=== PATIENT | male | born 1975 | race Caucasian/White ===

== ENCOUNTER → 2020-08-05 10:29 | Outpatient (BNVA) | payer OTHER, SELFPAY | PROVIDERS: Family Provider Urology; PCP Urology; Visit Provider Nurse Practitioner | DX: M79.671 Pain in right foot (principal); M72.2 Plantar fascial fibromatosis; M77.31 Calcaneal spur, right foot; Z68.21 Body mass index [BMI] 21.0-21.9, adult; F17.290 Nicotine dependence, other tobacco product, uncomplicated; Z71.89 Other specified counseling | CPT/HCPCS: 73630 ==

== ENCOUNTER 2022-06-19 04:56 | Observation (INO) | payer BC, SELFPAY ==
[2022-06-19] VITALS (12 sets, daily range): BP systolic 90–120; BP diastolic 54–71; PULSE 54–103; RESP 12–18; TEMP 36.2–37.1; O2SAT 95–100; BMI 20.7
--- NOTE | 2022-06-19 05:18 | CTR_ITS ---
PROCEDURE INFORMATION: Exam: CT Abdomen And Pelvis Without Contrast Exam date and time: 06/19/2022 5:35 AM Age: 46 years old Clinical indication: Nausea and vomiting; Abdominal pain; Patient HX: C/O left flank worse so in llq with n/v. ; Additional info: Left flank pain TECHNIQUE: Imaging protocol: Computed tomography of the abdomen and pelvis without contrast. Radiation optimization: All CT scans at this facility use at least one of these dose optimization techniques: automated exposure control; mA and/or kV adjustment per patient size (includes targeted exams where dose is matched to clinical indication); or iterative reconstruction. REPORTING DATA: Count of CT and Cardiac NM exams in prior 12 months: This patient has received 0 known CTs and 0 known cardiac nuclear medicine studies in the 12 months prior to the current study. COMPARISON: No relevant prior studies available. RADIATION DOSE METRICS: Total DLP (mGy-cm): 323.33 FINDINGS: Lungs: The visualized portions of the lung bases are normal. Liver: The non-contrast enhanced liver appears unremarkable. Gallbladder and bile ducts: No calcified stones. No biliary ductal dilatation. Pancreas: The non-contrast enhanced pancreas appears grossly unremarkable. No ductal dilation. Spleen: The non-contrast enhanced spleen appears unremarkable. No splenomegaly. Adrenal glands: Unremarkable non-contrast CT appearance of the adrenals. No definte masses. Kidneys and ureters: No contour deforming renal masses on the noncontrast CT. Left kidney mid zone 0.1 cm calculus. No right hydronephrosis, ureterectasis or ureteral calculi. Moderate left hydronephrosis and ureterectasis with a left distal ureteral 0.8 x 0.5 x 0.5 cm calculus (series 3, image 169 and series 5, image 73)-at the level of the hip joint. The Hounsfield units are 1363.9 HU. Stomach and bowel: The non-contrast opacified stomach is not well distended with relative gastric fold prominence. Assessment is limited. The noncontrast opacified small bowel loops appear unremarkable. The noncontrast opacified loops of colon show mild constipation. The lack of orally administered contrast material limits assessment. Appendix: No CT evidence of appendicitis. Intraperitoneal space: No abdominal ascites. No free air. Some benign phleboliths seen in the pelvis. Vasculature: No abdominal aortic aneurysm. Lymph nodes: No enlarged lymph nodes. Urinary bladder: No bladder debris. No wall thickening. Reproductive: The prostate demonstrates mild nonspecific enlargement. The seminal vesicles are normal. Recommend correlation with clinical exam findings and PSA level assessment. Bones/joints: No acute osseous abnormalities seen. Suspected osteopenia. Soft tissues: Unremarkable. CT/CT kidney stone [id number] IMPRESSION: 1. Moderate left hydronephrosis and ureterectasis with a left distal ureteral 0.8 x 0.5 x 0.5 cm calculus (series 3, image 169 and series 5, image 73)-at the level of the hip joint. 2. Other chronic findings, as noted above.
--- NOTE | 2022-06-19 05:18 | ED_ITS ---
Documented by User: Wesley Chong MD 06/19/22 05:20 HPI - Abdominal Pain General: Chief Complaint: Abdominal Pain Stated Complaint: Left Side Pain Time Seen by Provider: 06/19/22 05:02 Source: patient Mode of arrival: ambulatory Limitations: no limitations History of Present Illness: 46-year-old male states that he has had left flank pain since 11:00 he states he had sharp pain in that flank it radiates to his groin he has had 3 episodes of vomiting with the pain was severe he states at its worst a 10 out of 10 he states that seem to have improved is roughly a 6 out of 10 currently states he has no tenderness to touch is not worse with movement no history of kidney stone in the past. He denies any fevers denies any dysuria Associated Symptoms: Reports nausea and vomiting; Denies chills and fever(s) Review of Systems Const: Denies: fever(s), chills, body aches or change in appetite Eyes: Denies: blurry vision or eye discomfort ENMT: Denies: throat pain or dental pain Card: Denies: chest pain Resp: Denies: dyspnea GI: Reports: nausea and vomiting : Reports: flank pain Musc: Denies: neck pain or back pain Skin/Breast: Denies: rash Neuro: Denies: headache(s) Psych: Denies: depression Topher/Lymph: Denies: easy bruising All/Imm: Denies: urticaria PFS ED PFSH: Medical History (Updated 06/19/22 @ 05:48 by Wesley Chong MD) No pertinent past medical history Social History Smoking and tobacco status: current every day smoker (vape) e-cigarettes Physical Exam Const: COMMON NORMALS: no acute distress, patient oriented x3 and healthy appearing HENMT: COMMON NORMALS: normocephalic and atraumatic HEAD & SCALP: normocephalic and atraumatic Eye: COMMON NORMALS: Equal, round and reactive pupils present and EOMs intact bilaterally PUPIL: Yes Equal, round and reactive pupils present Neck/C-Spine: COMMON NORMALS: full ROM and supple Chest: COMMONS NORMALS: normal inspection of the chest and normal palpation of entire chest wall Resp: COMMON NORMALS: normal respiratory effort, No retractions, No use of accessory muscles and clear to auscultation bilaterally AUSCULTATION: clear to auscultation bilaterally Cardio: COMMON NORMALS: regular rate, regular rhythm and No murmurs present (Cardio) RATE: regular rate RHYTHM: regular rhythm GI: COMMON NORMALS: Normal to inspection, nondistended, normoactive bowel sounds present, Soft to palpation, non-tender and no masses PALPATION: Yes Soft to palpation Extremity: COMMON NORMALS: normal to inspection and full ROM Neuro: COMMON NORMALS: patient oriented x3, moves all extremities and no focal motor deficits Psych: COMMON NORMALS: mental status grossly normal, Normal thought process present and cooperative THOUGHT PROCESS: Normal thought process present Skin: COMMON NORMALS: no rashes or lesions noted and no wounds GENERAL SKIN EXAM: no rashes or lesions noted Course Vital Signs: Vital signs: Vital Signs Temperature 98.7 F 06/19/22 05:02 Pulse Rate 76 06/19/22 07:24 Respiratory Rate 16 06/19/22 07:24 Blood Pressure 102/68 06/19/22 07:24 Pulse Oximetry 97 06/19/22 07:24 Oxygen Delivery Me thod 06/19/22 06:27 MDM - Abdominal Pain Medical Decision Making Patient presents here with flank pain history consistent with a likely kidney stone he has no history of kidney stone we will obtain blood work urinalysis and a CT scan patient's care turned over to Dr. Alcaraz at this time Lab Data 06/19/22 05:30 06/19/22 05:30 Labs/Radiology: Radiology Impressions Abdomen/Pelvis CT 06/19/22 05:18 IMPRESSION: 1. Moderate left hydronephrosis and ureterectasis with a left distal ureteral 0.8 x 0.5 x 0.5 cm calculus (series 3, image 169 and series 5, image 73)-at the level of the hip joint. 2. Other chronic findings, as noted above. Laboratory Results WBC 11.3 10^3/uL (4.0-10.0) H 06/19/22 05:30 RBC 4.71 10^6/uL (4.1-5.3) 06/19/22 05:30 Hgb 14.2 g/dL (11.7-16.6) 06/19/22 05:30 Hct 42.2 % (42.0-52.0) 06/19/22 05:30 MCV 89.6 fl (80-94) 06/19/22 05:30 MCH 30.1 pg (28.0-34.0) 06/19/22 05:30 MCHC 33.6 g/dL (30.0-36.0) 06/19/22 05:30 RDW 13.3 % (12.1-15.1) 06/19/22 05:30 Plt Count 233 10^3/cmm (130-400) 06/19/22 05:30 MPV 9.7 fL (7.4-10.4) 06/19/22 05:30 Neut % (Auto) 83.3 % 06/19/22 05:30 Lymph % (Auto) 8.3 % 06/19/22 05:30 [place] % (Auto) 7.1 % 06/19/22 05:30 Eos % (Auto) 0.6 % 06/19/22 05:30 Baso % (Auto) 0.4 % 06/19/22 05:30 Neut # (Auto) 9.46 10^3/uL (1.8-7.7) H 06/19/22 05:30 Lymph # (Auto) 0.9 10^3/uL (0.8-4.8) 06/19/22 05:30 [place] # (Auto) 0.8 10^3/uL (0.2-0.9) 06/19/22 05:30 Eos # (Auto) 0.1 10^3/uL (0.0-0.8) 06/19/22 05:30 Baso # (Auto) 0.0 10^3/uL (0.0-0.1) 06/19/22 05:30 Nucleated RBC % (auto) 0 % 06/19/22 05:30 Nucleated RBCs # 0.0 /100WBC 06/19/22 05:30 Sodium 139 mmol/L (136-145) 06/19/22 05:30 Potassium 4.3 mmol/L (3.5-5.1) 06/19/22 05:30 Chloride 102 mmol/L (98-107) 06/19/22 05:30 Carbon Dioxide 28 mmol/L (22-29) 06/19/22 05:30 Anion Gap 13.3 (5-19) 06/19/22 05:30 BUN 16 mg/dL (6-20) 06/19/22 05:30 Creatinine 1.1 mg/dL (0.7-1.2) 06/19/22 05:30 GFR Calculation 71.4 mL/min (90-130) L 06/19/22 05:30 Glucose 112 mg/dL (65-115) 06/19/22 05:30 Calculated Osmolality 290 mOsm/kg (285-295) 06/19/22 05:30 Calcium 9.3 mg/dL (8.5-10.5) 06/19/22 05:30 Total Bilirubin 0.3 mg/dL (0.15-1.2) 06/19/22 05:30 AST 16 U/L (0-40) 06/19/22 05:30 ALT 16 U/L (0-41) 06/19/22 05:30 Alkaline Phosphatase 65 U/L (40-130) 06/19/22 05:30 Total Protein 6.6 g/dL (6.6-8.7) 06/19/22 05:30 Albumin 4.2 g/dL (3.5-5.2) 06/19/22 05:30 Globulin 2.4 g/dL (1.3-4.6) 06/19/22 05:30 Urine Color Yellow (Yellow) 06/19/22 06:25 Urine Appearance Clear (CLEAR) 06/19/22 06:25 Urine pH 9 (5-7) H 06/19/22 06:25 Ur Specific [place] 1.010 (1.005-1.030) 06/19/22 06:25 Urine Protein Neg (Negative) 06/19/22 06:25 Urine Glucose (UA) Norm (Normal) 06/19/22 06:25 Urine Ketones 1+ (Negative) H 06/19/22 06:25 Urine Blood 3+ (Negative) H 06/19/22 06:25 Urine Nitrate Negative (Negative) 06/19/22 06:25 Urine Bilirubin Neg (Negative) 06/19/22 06:25 Prot Sulfosalicylic Acd Negative (Negative) 06/19/22 06:25 Urine Urobilinogen Neg mg/dL (Negative) 06/19/22 06:25 Ur Leukocyte Esterase Negative (Negative) 06/19/22 06:25 Urine RBC 15-25 /hpf (0-2) H 06/19/22 06:25 Urine WBC None /hpf (0-5) 06/19/22 06:25 Ur Squamous Epith Cells None /hpf (0-5) 06/19/22 06:25 Amorphous Sediment Not Reportable 06/19/22 06:25 Urine Bacteria None /hpf (NONE) 06/19/22 06:25 Discharge Plan Discharge Patient Disposition: Placed in Observation Clinical Impression: Kidney stone on right side Condition: Stable Prescriptions: New hydrocodone-acetaminophen 5-325 mg tablet 1 tab PO Q6H PRN (Reason: pain) Qty: 14 0RF ondansetron 4 mg tablet,disintegrating 4 mg PO Q6H PRN (Reason: nausea and vomiting) Qty: 14 0RF No Action naproxen [Naprosyn] 500 mg tablet 500 mg PO BID 10 Days Qty: 20 0RF Referrals: Zeferino Kulkarni MD [Physician] - 1-3 days Patient Instructions: Kidney Stones (ED), Opioid Safety Sign Out Sign Out Data: Patient Sign Out occurred on 06/19/22 at 06:02. Patient's care was discussed, and care was transferred from to Kilo Alcaraz DO. Coding Level of Care Code ED Map Mounter for Chg Fwd Documented by User: Kilo Alcaraz DO 06/19/22 07:48 HPI - Abdominal Pain General: Chief Complaint: Abdominal Pain Stated Complaint: Left Side Pain Time Seen by Provider: 06/19/22 05:02 [facility] ED PFSH: Medical History (Updated 06/19/22 @ 05:48 by Wesley Chong MD) No pertinent past medical history Social History Smoking and tobacco status: current every day smoker (vape) e-cigarettes Course Vital Signs: Vital signs: Vital Signs Temperature 98.7 F 06/19/22 05:02 Pulse Rate 76 06/19/22 07:24 Respiratory Rate 16 06/19/22 07:24 Blood Pressure 102/68 06/19/22 07:24 Pulse Oximetry 97 06/19/22 07:24 Oxygen Delivery Me thod 06/19/22 06:27 MDM - Abdominal Pain Medical Decision Making Patient presents here with flank pain history consistent with a likely kidney stone he has no history of kidney stone we will obtain blood work urinalysis and a CT scan patient's care turned over to Dr. Alcaraz at this time Assumed care from Dr. Chong at change of shift. CT reviewed discussed with Dr. Kulkarni. He is planning to place on observation to do cystoscopy and retrieve stone. Patient's pain is well controlled at this time. Medical Records I reviewed the patient's medical records. Lab Data I reviewed the patient's lab results. 06/19/22 05:30 06/19/22 05:30 Labs/Radiology: Radiology Impressions Abdomen/Pelvis CT 06/19/22 05:18 IMPRESSION: 1. Moderate left hydronephrosis and ureterectasis with a left distal ureteral 0.8 x 0.5 x 0.5 cm calculus (series 3, image 169 and series 5, image 73)-at the level of the hip joint. 2. Other chronic findings, as noted above. Laboratory Results WBC 11.3 10^3/uL (4.0-10.0) H 06/19/22 05:30 RBC 4.71 10^6/uL (4.1-5.3) 06/19/22 05:30 Hgb 14.2 g/dL (11.7-16.6) 06/19/22 05:30 Hct 42.2 % (42.0-52.0) 06/19/22 05:30 MCV 89.6 fl (80-94) 06/19/22 05:30 MCH 30.1 pg (28.0-34.0) 06/19/22 05:30 MCHC 33.6 g/dL (30.0-36.0) 06/19/22 05:30 RDW 13.3 % (12.1-15.1) 06/19/22 05:30 Plt Count 233 10^3/cmm (130-400) 06/19/22 05:30 MPV 9.7 fL (7.4-10.4) 06/19/22 05:30 Neut % (Auto) 83.3 % 06/19/22 05:30 Lymph % (Auto) 8.3 % 06/19/22 05:30 [place] % (Auto) 7.1 % 06/19/22 05:30 Eos % (Auto) 0.6 % 06/19/22 05:30 Baso % (Auto) 0.4 % 06/19/22 05:30 Neut # (Auto) 9.46 10^3/uL (1.8-7.7) H 06/19/22 05:30 Lymph # (Auto) 0.9 10^3/uL (0.8-4.8) 06/19/22 05:30 [place] # (Auto) 0.8 10^3/uL (0.2-0.9) 06/19/22 05:30 Eos # (Auto) 0.1 10^3/uL (0.0-0.8) 06/19/22 05:30 Baso # (Auto) 0.0 10^3/uL (0.0-0.1) 06/19/22 05:30 Nucleated RBC % (auto) 0 % 06/19/22 05:30 Nucleated RBCs # 0.0 /100WBC 06/19/22 05:30 Sodium 139 mmol/L (136-145) 06/19/22 05:30 Potassium 4.3 mmol/L (3.5-5.1) 06/19/22 05:30 Chloride 102 mmol/L (98-107) 06/19/22 05:30 Carbon Dioxide 28 mmol/L (22-29) 06/19/22 05:30 Anion Gap 13.3 (5-19) 06/19/22 05:30 BUN 16 mg/dL (6-20) 06/19/22 05:30 Creatinine 1.1 mg/dL (0.7-1.2) 06/19/22 05:30 GFR Calculation 71.4 mL/min (90-130) L 06/19/22 05:30 Glucose 112 mg/dL (65-115) 06/19/22 05:30 Calculated Osmolality 290 mOsm/kg (285-295) 06/19/22 05:30 Calcium 9.3 mg/dL (8.5-10.5) 06/19/22 05:30 Total Bilirubin 0.3 mg/dL (0.15-1.2) 06/19/22 05:30 AST 16 U/L (0-40) 06/19/22 05:30 ALT 16 U/L (0-41) 06/19/22 05:30 Alkaline Phosphatase 65 U/L (40-130) 06/19/22 05:30 Total Protein 6.6 g/dL (6.6-8.7) 06/19/22 05:30 Albumin 4.2 g/dL (3.5-5.2) 06/19/22 05:30 Globulin 2.4 g/dL (1.3-4.6) 06/19/22 05:30 Urine Color Yellow (Yellow) 06/19/22 06:25 Urine Appearance Clear (CLEAR) 06/19/22 06:25 Urine pH 9 (5-7) H 06/19/22 06:25 Ur Specific [place] 1.010 (1.005-1.030) 06/19/22 06:25 Urine Protein Neg (Negative) 06/19/22 06:25 Urine Glucose (UA) Norm (Normal) 06/19/22 06:25 Urine Ketones 1+ (Negative) H 06/19/22 06:25 Urine Blood 3+ (Negative) H 06/19/22 06:25 Urine Nitrate Negative (Negative) 06/19/22 06:25 Urine Bilirubin Neg (Negative) 06/19/22 06:25 Prot Sulfosalicylic Acd Negative (Negative) 06/19/22 06:25 Urine Urobilinogen Neg mg/dL (Negative) 06/19/22 06:25 Ur Leukocyte Esterase Negative (Negative) 06/19/22 06:25 Urine RBC 15-25 /hpf (0-2) H 06/19/22 06:25 Urine WBC None /hpf (0-5) 06/19/22 06:25 Ur Squamous Epith Cells None /hpf (0-5) 06/19/22 06:25 Amorphous Sediment Not Reportable 06/19/22 06:25 Urine Bacteria None /hpf (NONE) 06/19/22 06:25 Discharge Plan Discharge Patient Disposition: Placed in Observation Clinical Impression: Kidney stone on right side Condition: Stable Prescriptions: New hydrocodone-acetaminophen 5-325 mg tablet 1 tab PO Q6H PRN (Reason: pain) Qty: 14 0RF ondansetron 4 mg tablet,disintegrating 4 mg PO Q6H PRN (Reason: nausea and vomiting) Qty: 14 0RF No Action naproxen [Naprosyn] 500 mg tablet 500 mg PO BID 10 Days Qty: 20 0RF Referrals: Zeferino Kulkarni MD [Physician] - 1-3 days Patient Instructions: Kidney Stones (ED), Opioid Safety Sign Out Sign Out Data: Patient Sign Out occurred on 06/19/22 at 06:02. Patient's care was discussed, and care was transferred from to Kilo Alcaraz DO. Coding Level of Care Code ED Map Mounter for Aram Moyer
[2022-06-19 05:47] LABS: Basophils % 0.4 %; Eosinophils # 0.1 10^3/uL (0.0-0.8); Eosinophils % 0.6 %; Hematocrit 42.2 % (42.0-52.0); Hemoglobin 14.2 g/dL (11.7-16.6); Lymphocytes # 0.9 10^3/uL (0.8-4.8); Lymphocytes % 8.3 %; Mean Corpuscular HGB Conc 33.6 g/dL (30.0-36.0); Mean Corpuscular Hemoglobin 30.1 pg (28.0-34.0); Mean Corpuscular Volume 89.6 fl (80-94); Mean Platelet Volume 9.7 fL (7.4-10.4); Monocytes # 0.8 10^3/uL (0.2-0.9); Monocytes % 7.1 %; Neutrophils # 9.46 10^3/uL (1.8-7.7); Neutrophils % 83.3 %; Nucleated Red Blood Cells % 0 %; Platelet Count 233 10^3/cmm (130-400); Red Blood Count 4.71 10^6/uL (4.1-5.3); Red Cell Distribution Width 13.3 % (12.1-15.1); White Blood Count 11.3 10^3/uL (4.0-10.0)
[2022-06-19] MEDS: ondansetron 2 mg/ML SDV 2 mL 4 MG IVP (05:47)
[2022-06-19] MEDS: sodium chloride 0.9% 1,000 ML 999 ML IV (05:47)
[2022-06-19] MEDS: HYDROmorphone 1 mg/mL INJ 1 mL 0.5 MG IVP (05:47)
[2022-06-19 06:10] LABS: Alanine Aminotransferase 16 U/L (0-41); Albumin Level 4.2 g/dL (3.5-5.2); Alkaline Phosphatase 65 U/L (40-130); Anion Gap 13.3 (5-19); Aspartate Amino Transferase 16 U/L (0-40); Blood Urea Nitrogen 16 mg/dL (6-20); Calcium 9.3 mg/dL (8.5-10.5); Carbon Dioxide 28 mmol/L (22-29); Chloride 102 mmol/L (98-107); Creatinine Clr Calc Pharmacy 78.7822; Globulin 2.4 g/dL (1.3-4.6); Glomerular Filtration Rate 71.4 mL/min (90-130); Glucose 112 mg/dL (65-115); Osmolality Calculated 290 mOsm/kg (285-295); Potassium 4.3 mmol/L (3.5-5.1); Sodium 139 mmol/L (136-145); Total Bilirubin 0.3 mg/dL (0.15-1.2); Total Protein 6.6 g/dL (6.6-8.7)
[2022-06-19 06:55] LABS: Add Urine Microscopic? YES; Bilirubin Urine Neg (Negative); Blood Urine 3+ (Negative); Glucose Urine UA Norm (Normal); Ketones Urine 1+ (Negative); Leukocyte Esterase Urine Negative (Negative); Nitrate Urine Negative (Negative); Protein Urine Neg (Negative); Sulfosalicylic Acid Urine Negative (Negative); Urine Appearance Clear (CLEAR); Urine Color Yellow (Yellow); Urobilinogen Urine Neg (Negative); pH Urine 9 (5-7)
[2022-06-19 06:56] LABS: Add Urine Culture? No; RBC Urine 15-25 /hpf (0-2)
--- NOTE | 2022-06-19 07:23 | PC.NURSE ---
DR. ROSE CURRENTLY IN ROOM SPEAKING WITH PT
--- NOTE | 2022-06-19 07:57 | PC.PHAR ---
pt states takes rx or otc medications
[2022-06-19] MEDS: sodium chloride 0.9% 1,000 ML 150 ML IV (08:15)
--- NOTE | 2022-06-19 09:46 | DCPLANNER ---
Addendum entered by Anisha Thornton 07/08/22 07:46: Patient had a follow up appointment scheduled with urology - patient did attend appointment Addendum entered by Anisha Thornton 06/23/22 14:32: Patient has a follow up appointment scheduled for Wednesday, June 29, 2022 at 2:[address] Kulkarni at urology. Clinic will call patient with appointment information. Original Note: finishing manager had message to schedule a follow up appointment for patient with urology. finishing manager sent patients information to the front office staff at urology. Patients information will be printed and reviewed. Clinic will call patient with appointment information.
[2022-06-19] MEDS: ketorolac 30 mg/mL INJ 15 MG IVP (10:50)
--- NOTE | 2022-06-19 13:06 | ANES.PREANE2 ---
Pre-Anesthetic Assessment Height/Weight: Height 1.75 m Weight 63.503 kg Temp Pulse Resp BP Pulse Ox O2 Del Method 98.7 F 54 L 16 90/59 95 06/19/22 05:02 06/19/22 08:39 06/19/22 08:39 06/19/22 08:39 06/19/22 08:39 06/19/22 10:21 Operation Date: 06/19/22 13:05 Proposed Procedures p Cystoscopy(Not Applicable) - Zeferino Kulkarni MD s Retrograde Pyelogram(Left) - Zeferino Kulkarni MD s Ureteroscopy(Left) - Zeferino Kulkarni MD s Laser Lithotripsy(Left) - Zeferino Kulkarni MD s Ureteral Stent Placement(Left) - Zeferino Kulkarni MD Familial anesthetic complications: None Was Beta Robby taken within 24 hours: N/A Was Clonidine taken within 24 hours: N/A Last intake: > 8hrs Social No alcohol and No tobacco Former smoker Exam alert, oriented x 3, clear to auscultation bilaterally and regular rate & rhythm Airway Mallampati: Class I Dentition: chipped Anesthetic Plan ASA status: 1 Anesthesia: General Risk of > 500 ml blood loss (7ml/kg in children): No Medications/Allergies Home Medications Medication Instructions Recorded Confirmed Last Taken Type No Known Home Medications 06/19/22 06/19/22 Unknown History Allergies Allergy/AdvReac Type Severity Reaction Status Date / Time No Known Allergies Allergy Verified 06/19/22 07:56 Current Medications Generic Name Dose Route Start Last Admin Trade Name Freq PRN Reason Stop Dose Admin Sodium Chloride 1,000 mls @ 150 mls/hr 06/19/22 07:45 06/19/22 08:15 Sodium Chloride 0.9% IV 150 mls/hr .Q6H40M DULCE Administration Ketorolac Tromethamine 15 mg 06/19/22 07:43 06/19/22 10:50 Ketorolac 30 Mg/Ml Inj IVP 06/24/22 07:42 15 mg Q6H PRN Administration MODERATE PAIN PFSH Anesthesia Medical History (Updated 06/19/22 @ 07:53 by Zeferino Kulkarni MD) Urolithiasis Surgical History (Updated 06/19/22 @ 07:53 by Zeferino Kulkarni MD) Status post routine circumcision Social History Smoking and tobacco status: current every day smoker (vape) e-cigarettes Data Anesthesia 06/19/22 05:30 06/19/22 05:30 Short CBC 06/19/22 Range/Units 05:30 WBC 11.3 H (4.0-10.0) 10^3/uL Hgb 14.2 (11.7-16.6) g/dL Hct 42.2 (42.0-52.0) % MCV 89.6 (80-94) fl Plt Count 233 (130-400) 10^3/cmm Neut % (Auto) 83.3 % Neut # (Auto) 9.46 H (1.8-7.7) 10^3/uL BMP 06/19/22 05:30 Sodium 139 Potassium 4.3 Chloride 102 Carbon Dioxide 28 BUN 16 Creatinine 1.1 Glucose 112 Calcium 9.3 Liver Function 06/19/22 Range/Units 05:30 Total Bilirubin 0.3 (0.15-1.2) mg/dL AST 16 (0-40) U/L ALT 16 (0-41) U/L Alkaline Phosphatase 65 (40-130) U/L Albumin 4.2 (3.5-5.2) g/dL Urine 06/19/22 Range/Units 06:25 Urine Color Yellow (Yellow) Urine Appearance Clear (CLEAR) Urine pH 9 H (5-7) Ur Specific [place] 1.010 (1.005-1.030) Urine Protein Neg (Negative) Urine Glucose (UA) Norm (Normal) Urine Ketones 1+ H (Negative) Urine Nitrate Negative (Negative) Urine Bilirubin Neg (Negative) Ur Leukocyte Esterase Negative (Negative) Urine RBC 15-25 H (0-2) /hpf Urine WBC None (0-5) /hpf Cardiac Studies: No Data to Display
[2022-06-19] MEDS: sodium chloride 0.9% 1,000 ML 30 ML IV (13:27)
[2022-06-19] MEDS: levofloxacin-dextrose 5 % 500 MG/100 ML PREMIX 100 MG IV (13:42)
--- NOTE | 2022-06-19 14:53 | PM.OP ---
Operative Report Date of procedure: June 19, 2022 Pre-op diagnosis: 1. Refractory left renal colic secondary to 8 mm left distal ureteral stone with obstruction. Post-op diagnosis: 1. Refractory left renal colic secondary to 8 mm left distal ureteral stone with obstruction. Procedure done: 1. Cystoscopy, LEFT retrograde 2. Left ureteroscopy, laser lithotripsy, stent Implants: Ureteral stent Specimens removed/disposition: Stone fragments Pathology: Stone fragments Surgeon: Cayla Estimated blood loss: Minimal Urine output: Not measured Complications: None Findings: Anesthesia: General Condition: Stable Disposition: PACU Intraoperative findings: Stone in the expected position. Easily accessible and fragmented completely 6 [place] by 28 cm double-pigtail stent left indwelling with no string attached. Brief History: Marlon is a 46-year-old very pleasant male who presented to the emergency department this morning with severe refractory left renal colic secondary to an 8 mm left distal ureteral stone with high-grade obstruction. He was aggressively managed with parenteral narcotics and still was having some pain. He was placed in the hospital for further symptomatic control. Options were thoroughly reviewed including endoscopic treatment of the stone, delayed ESWL, further conservative management to see if he could pass it spontaneously. Ultimately he elected endoscopic treatment to try to become pain-free as soon as possible but also based on his logistics of work and that he is on a river boat and is due to go back out soon. Procedure: After routine preoperative evaluation examination and obtaining of informed consent he was taken to the operating suite on 06/19/2022 where general anesthesia was administered without difficulty after appropriate timeout was performed, SCDs confirmed to be functioning, preoperative antibiotics administered, beta-emiliano protocol confirmed. Prepped and draped in usual sterile fashion in dorsolithotomy position paying careful attention to avoiding pressure points. 21 [place] cystoscope with 30 degree lens was introduced into the urethra meatus and advanced into the bladder without difficulty. The bladder was systematically examined. No stone was seen. An 8 [place] cone-tip catheter was intubated into the left ureteral orifice for a LEFT RETROGRADE URETEROPYELOGRAM which demonstrated: The ureter distal to the stone appeared to be normal. Stone was demonstrated easily as a filling defect consistent with a stone seen on CT scan. The ureter proximal to the stone as expected was quite dilated as seen on CT scan. No other filling defects were noted. A flexible tip guidewire was then advanced up the left ureter bypassing the stone and curling in the area of the upper pole calyx. Then the ureter distal to the stone was dilated over the wire with a 15 [place] 4 cm balloon. No waist. The wire was secured to the drapes as a safety wire and a 7 [place] offset semirigid ureteroscope was advanced up the left ureter next to the guidewire and the stone was encountered in its expected position. It was then fragmented with a 365 ?m thulium superpulse laser fiber into very small fragments most of which flushed from the ureter and summer removed with grasping forceps and basket. The scope was passed into the proximal ureter after completion of the stone fragmentation and removal no additional stones or fragments were identified. On final inspection there was only very tiny sand-like particles too small to secure in the basket remaining. There was significant edema where the stone had been located and for that reason it was decided to leave a stent. The cystoscope was then backloaded over the guidewire and a 6 [place] by 28 cm double-pigtail stent was advanced over the guidewire through the cystoscope into appropriate position as confirmed via fluoroscopy and cystoscopy. The stent was confirmed to be working. The fragments that have been dropped into the bladder were then flushed free from the bladder through the cystoscope and sent for pathologic evaluation again most of what came out was sand and some of it very hard to collect. He tolerated the procedure well without complications and was awakened in the operating room and returned to PACU in stable condition. PLANS 1. If recovers well and pain well controlled he can be discharged from observation status today to home 2. We will see him back late next week for a cystoscopy and stent removal. I anticipate by that time the swelling will be resolved. 3. KUB first
--- NOTE | 2022-06-19 15:00 | PM.SDS ---
Short Stay Summary Providers Date of Admit/Discharge: 06/19/22 Attending Provider: Cayla Consults: None Primary Care Provider: Dr. Zaidi Chief Complaint: Obstructing 8 mm left distal ureteral stone HPI History of Present Illness Marlon is a 46 year old male who presented to the emergency department this morning with severe left flank pain beginning last night. Typical for renal colicky type symptoms. Described it as a 10 out of 10. No prior history of stones but he did have a similar transient episode of the same kind of pain in the past. Never passed a stone Work-up in the emergency department revealed a 8 mm stone in the left distal ureter with high-grade obstructive changes. Urine was not infected. Creatinine was 1.1. No evidence of other gross pathology on lab or imaging. Was difficult to get his pain controlled and he was admitted for further evaluation and treatment. We did review further conservative management inpatient or outpatient, ESWL, endoscopy. Admitted to observation status. We reviewed the options again and he elected to proceed with endoscopic treatment today in order to try to speed up the whole process. [place] within the next 7 to 10 days and would like to try to be stent free and stone free by that time. He also wants to try a very diligently to avoid the kind of symptoms that he had last night. Elected to proceed urgently with endoscopic laser lithotripsy. The procedure was explained in detail to the patient and his with benefits risk potential complications alternatives, stent versus no stent tissue, perioperative limitations and expectations. Reviewed that occasionally it takes a staged procedure with stent first followed by repeat attempt after passive dilation with a stent and very rarely inability to access the ureter from below leading to either change of treatment option including ESWL first followed by reattempted stent of the stone fragments or percutaneous nephrostomy and antegrade stent placement. Based on the duration of symptoms that he had I do not expect that he will have a tremendous amount of edema around the stone and hopefully will be easily accessible. Informed consent was obtained. Review of Systems Const: Denies: fever(s), chills or body aches Eyes: Denies: change in vision ENMT: Denies: throat pain or hoarseness Card: Denies: chest pain or palpitations Resp: Denies: dyspnea or productive cough GI: Reports: abdominal pain and nausea : Reports: flank pain; Denies: dysuria Musc: Denies: joint swelling or joint redness Skin/Breast: Denies: rash or sores Neuro: Denies: confusion, behavioral changes or Slurred speech present Psych: Reports: anxiety (Related to the pain but otherwise baseline fine) Endo: Denies: flushing Topher/Lymph: Denies: easy bruising or easy bleeding All/Imm: Denies: urticaria or acute wheezing Home Meds/Allergies Home Medications and Allergies Allergies Allergy/AdvReac Type Severity Reaction Status Date / Time No Known Allergies Allergy Verified 06/19/22 07:56 PFSH Acute PFSH: Medical History (Updated 06/19/22 @ 07:53 by Zeferino Kulkarni MD) Urolithiasis Surgical History (Updated 06/19/22 @ 14:58 by Zeferino Kulkarni MD) Status post laser lithotripsy of ureteral calculus May 2022, large left distal ureteral stone with high-grade obstruction and refractory symptoms treated with laser lithotripsy and temporary stent Status post routine circumcision Social History Smoking and tobacco status: current every day smoker (vape) e-cigarettes Vitals/I&O/Wt Last Vital Signs Temp 98.7 F 06/19/22 05:02 Pulse 76 06/19/22 07:24 Resp 16 06/19/22 07:24 BP 102/68 06/19/22 07:24 Pulse Ox 97 06/19/22 07:24 O2 Del Method 06/19/22 06:27 Weight last 48 hrs Weight 140 lb Physical Exam Const: COMMON NORMALS: alert and well nourished GENERAL APPEARANCE: well kempt and well developed ORIENTATION/CONSCIOUSNESS: not confused HENMT: COMMON NORMALS: normocephalic HEAD & SCALP: normal to inspection and normocephalic Eye: COMMON NORMALS: conjunctivae normal and no scleral icterus CONJUNCTIVA: Yes conjunctivae normal Neck/C-Spine: GENERAL: Yes normal visual inspection Lymph: OTHER: No palpable lymphadenopathy Chest: OTHER: Normal movements Resp: COMMON NORMALS: normal respiratory effort EFFORT & INSPECTION: Yes able to speak in complete sentences, No labored and No Actively coughing Cardio: COMMON NORMALS: regular rate and regular rhythm RATE: regular rate RHYTHM: regular rhythm GI: OTHER: Left lower quadrant tenderness : OTHER: Bladder nondistended Back/Pelvis: OTHER: Left CVA tenderness Extremity: COMMON NORMALS: no clubbing, cyanosis or edema Neuro: COMMON NORMALS: no focal motor deficits SENSORIUM/ORIENTATION: Yes alert Psych: COMMON NORMALS: mental status grossly normal APPEARANCE: Yes grossly normal and Yes well kempt ATTITUDE: Yes calm and Yes engaged Skin: COMMON NORMALS: no rashes or lesions noted and no jaundice GENERAL SKIN EXAM: no rashes or lesions noted Hospital Course Admission Diagnoses Left distal ureteral stone with obstruction and refractory symptom Hospital Course He was admitted through the emergency department for the above clinical condition. Ultimately he decided to proceed with intervention to try to shorten the course of the stone symptoms that have been so severe. He also had a logistical issue with leaving town soon [place]. On the afternoon of his admission he was taken to the operating suite where cystoscopy, LEFT: Retrograde, ureteroscopy, laser, stent was performed without difficulty. The stone was easily accessed and fragmented. He did have a lot of edema and for that reason it was decided to leave a stent indwelling at discharge. After appropriate recovery he was discharged home in stable condition. SSS Data Data Completed and Pending: Completed Studies During Hospitalization Category Date Time Status CT kidney stone [id number] Stat Cat Scan 06/19/22 05:18 Completed Procedures Performed: Cystoscopy, LEFT retrograde ureteropyelogram, ureteroscopy with laser lithotripsy and stent Discharge Plan Discharge Patient Disposition: Home Condition: Stable Prescriptions: New hydrocodone-acetaminophen 5-325 mg tablet 1 tab PO Q8H PRN (Reason: pain) Qty: 8 0RF Discharge Orders: Discharge Order (Routine); Ordered 06/19/22 Ordered By: Zeferino Kulkarni Referrals: Zeferino Kulkarni MD [Physician] - 06/26/22 ([facility] first Cystoscopy stent removal) Discharge Diet: Usual diet Discharge Activity: Increase activity as tolerated Patient Instructions: Kidney Stones (ED), Urethral Stent Placement (GEN), Opioid Safety Activity Restrictions/Additional Instructions: 1. The procedure went very well. The stone was in the expected position and quite large. It was fragmented completely and although sizable fragments were removed with the basket. What remained in the ureter was mostly sand and will flush out without difficulty 2. There was a lot of swelling where the stone had been located and for that reason it was decided to leave a stent. The stent needs to be removed before you leave to go back to the boat. We will plan on doing this late next week. We will have a x-ray performed beforehand. 3. The stent does create some symptoms including urgency, frequency, blood in the urine, possibly some left flank pain with voiding. All of these are typical and expected and will resolve once the stent is removed. 4. If there is significant mount irritative symptoms in the bladder you can get [id number] Azo Standard which turns your urine bright orange. This will help soothe your bladder. Attestations Medical Necessity Statement*: Could not control pain adequately on outpatient basis. Admitted for symptomatic control and treatment of the stone Time Spent in Patient Care*: less than 30 min Quality Metrics Clinical Quality Measures: [ No reported AMI, CVA or VTE this stay] Coding Level of Care Code Acute Code for Priscilag Fwedie
[2022-06-19] MEDS: phenazopyridine 100 mg Tablet 200 MG PO (16:40)
[2022-06-19] MEDS: HYDROcodone-acetaminophen 5-325 mg Tablet 1 TAB PO (16:45)
--- NOTE | 2022-06-19 17:12 | PC.NURSE ---
Discharge Note Patient discharged to home via proivate vehicle accompanied by . Discharge instructions reviewed with patient and/or franchise sales representative. Mobile pharmacy medications and/or prrscriptions provided. Belongings/home medications returned.
--- NOTE | 2022-06-19 18:07 | ANE.PACU2 ---
Inpatient post-anesthesia follow up: Airway intact: Yes Vital signs: Temperature 97.1 F Pulse Rate 61 Respiratory Rate 16 Blood Pressure 109/65 Pulse Oximetry 100 Oxygen Delivery Me thod Room Air Oxygen Flow Rate Fraction of Inspir ed Oxygen Hydration adequate: Yes Nausea and vomiting: No Pain level: 1 Mental status: Baseline
[2022-06-25 20:56] LABS: Stone Source LEFT URETER
== END 2022-06-19 17:25 | disposition home or self-care (01) ==
LOC: ER 08:10 → MEDSURG 09:04
PROVIDERS: Emergency Medicine; Admitting Provider Urology; Emergency Provider Family Medicine; Visit Provider Urology
PROC: 0TJB8ZZ Inspection of Bladder, Via Natural or Artificial Opening Endoscopic (ICD-10-PCS; CPT 52000; principal; 2022-06-19 12:45)
PROC: (CPT 74420; 2022-06-19 12:45)
PROC: 0TJ98ZZ Inspection of Ureter, Via Natural or Artificial Opening Endoscopic (ICD-10-PCS; CPT 52351; 2022-06-19 12:45)
PROC: (CPT 52356; 2022-06-19 12:45)
PROC: (CPT 50605; 2022-06-19 12:45)
DX: N23 Unspecified renal colic (principal); N20.1 Calculus of ureter; N13.5 Crossing vessel and stricture of ureter without hydronephrosis; F17.290 Nicotine dependence, other tobacco product, uncomplicated
CPT/HCPCS: 52356; 74176; 80053; 81001; 82365; 85025; 88300; 96361; 96374; 96375; 99285; G0378; J1170; J1885; J1956; J2405; J2704; J2710; J3010; J3490; J7030

== ENCOUNTER 2022-06-29 13:04 | Outpatient (CLI) | payer BC, SELFPAY ==
--- NOTE | 2022-06-29 13:22 | XRR_ITS ---
PROCEDURE INFORMATION: Exam: XR Abdomen Exam date and time: 06/29/2022 1:22 PM Age: 47 years old Clinical indication: Condition or disease; Kidney or ureter condition; Calculus (stone) in kidney; Patient HX: Left side kidney stone; Additional info: Stones, kub @ 1:30pm on 06/29/22, appt to follow TECHNIQUE: Imaging protocol: Radiologic exam of the abdomen. Views: Frontal supine view of the abdomen. 1 View. COMPARISON: CT kidney stone [id number] 06/19/2022 5:35 AM FINDINGS: Tubes, catheters and devices: There is an internal left nephroureteral stent projecting over the left renal hilum in urinary bladder. There is no suspicious calcification identified along the course of the tract or right renal fossa. Gastrointestinal tract: Normal. No bowel dilation. Bones/joints: Unremarkable. XR/XR KUB [id number] IMPRESSION: Internal left nephroureteral stent in position. No suspicious calcifications detected.
== END 2022-06-29 13:05 | disposition home or self-care (01) ==
PROVIDERS: Visit Provider Urology
DX: N12 Tubulo-interstitial nephritis, not specified as acute or chronic (principal)
CPT/HCPCS: 74018; 81003